=== PATIENT | female | born 1995 | race American Indian/Alaskan Native ===

== ENCOUNTER 2023-02-08 12:14 | Emergency (ER) | payer OTHER ==
[2023-02-08 12:26] VITALS: BP 115/61; PULSE 75; RESP 18; TEMP 98; BMI 20.5
[2023-02-08 13:41] LABS: BASO % 0.5 % (0-2.0); EOS % 1.6 % (0-4.5); HEMATOCRIT 36.3 % (32.4-45.2); HEMOGLOBIN 11.7 GM/dL (10.7-15.3); LYMPH % 32.4 % (8-40); MCH 26.4 pg (25.7-33.7); MCHC 32.3 g/dl (32.0-36.0); MEAN CELL VOLUME 81.9 fl (80-96); MEAN PLT VOLUME 8.3 fl (7.5-11.1); MONO % 4.9 % (3.8-10.2); NEUT % 60.6 % (42.8-82.8); PLATELET COUNT 322 10^3/uL (134-434); RBC 4.43 M/mm3 (3.60-5.2); RDW 15.7 % (11.6-15.6); WHITE BLOOD COUNT 6.9 K/mm3 (4.0-10.0)
[2023-02-08 13:51] LABS: POTASSIUM 3.9 mmol/L (3.5-5.1)
[2023-02-08 13:53] LABS: ALBUMIN 4.1 g/dl (3.4-5.0); BLOOD UREA NITROGEN 10.7 mg/dL (7-18); CALCIUM 9.3 mg/dL (8.5-10.1); MAGNESIUM 2.2 mg/dL (1.8-2.4)
[2023-02-08 13:56] LABS: CREATININE 0.6 mg/dL (0.55-1.3)
[2023-02-08 13:58] LABS: BILIRUBIN,TOTAL 0.4 mg/dL (0.2-1); TOT PROT 8.1 g/dl (6.4-8.2)
[2023-02-08] MEDS ORDERED: IBUPROFEN 600 MG TABLET (FP) PO ONE ×2 (16:27→16:29)
[2023-02-08] MEDS ORDERED: LIDOCAINE 5% TOPICAL PATCH TP ONE (16:28)
[2023-02-08] MEDS ORDERED: LIDOCAINE 5% TOPICAL PATCH ONE (16:29)
[2023-02-08] MEDS ORDERED: LIDOCAINE PATCH REMOVAL MC ONE (22:00)
== END 2023-02-08 16:32 | disposition home or self-care (01) ==
LOC: JERFT 12:14
DX: R20.2 Paresthesia of skin (principal); M79.601 Pain in right arm; M54.2 Cervicalgia
CPT/HCPCS: 36415; 70450-TC; 72125-TC; 80053; 83735; 84703; 85025; 99284-25